=== PATIENT | female | born 1960 | race Two or more races ===

== ENCOUNTER 2018-12-07 12:57 | Emergency (ER) | payer OTHER ==
[~2018-12-07] VITALS: Ht 160 cm; Wt 67.6 kg
[~2018-12-07 12:57] MED LIST: KETO10TA2 PO; ORPH100T PO
== END 2018-12-07 14:27 | disposition home or self-care (01) ==
LOC: ER 12:57
DX: M54.5 Low back pain (principal)

== ENCOUNTER 2020-03-26 08:33 | Outpatient (CLI) | payer OTHER | END 2020-03-26 08:47 | disposition HB | LOC: MAMO-SONO 08:33 | PROVIDERS: ATTEND Specialist | DX: N94.89 Other specified conditions associated with female genital organs and menstrual cycle (principal); N60.11 Diffuse cystic mastopathy of right breast; N60.12 Diffuse cystic mastopathy of left breast ==